=== PATIENT | female | born 1965 | race Two or more races ===

== ENCOUNTER 2022-12-13 18:39 | Emergency (ER) | payer MEDICAID, OTHER ==
[~2022-12-13] VITALS: Ht 144.8 cm; Wt 52.5 kg
[2022-12-13] MEDS ORDERED: ASPirin 81 mg TAB PO ONE (18:45)
[2022-12-13 19:10] LABS: Basophils # (auto) 0 10 ^3/uL (0-0.2); Basophils % (auto) 0.4 % (0.0-2.0); Eosinophils # (auto) 0.2 10 ^3/uL (0-0.8); Eosinophils % (auto) 2.4 % (0.0-7.0); Hematocrit 41.7 % (36.0-46.0); Hemoglobin 14.5 g/dL (12.2-16.2); Lymphocytes # (auto) 2.1 10 ^3/uL (0.4-5.4); Lymphocytes % (auto) 30.8 % (10.0-50.0); Mean Corpuscular Hemoglobin 28.7 pg (28.0-32.0); Mean Corpuscular Hgb Conc. 34.8 g/dL (32.0-36.0); Mean Corpuscular Volume 82.3 fL (80.0-100.0); Monocytes # (auto) 0.5 10 ^3/uL (0-1.3); Neutrophils % (auto) 59.4 % (37.0-80.0); Nucleated Red Blood Cells % 0.1 %; Red Blood Cells 5.06 10^6/uL (4.0-5.20); Red Cell Distribution Width 13.8 % (11.8-14.3); White Blood Cell 6.7 10^3/uL (4.4-10.8)
[2022-12-13 19:24] LABS: Albumin 3.6 g/dL (3.4-5.0); BUN/Creatinine Ratio 25.7; Calcium 9.1 mg/dL (8.5-10.1); Potassium 4.1 mmol/L (3.5-5.1)
[2022-12-13 19:27] LABS: Bilirubin, Total 0.8 mg/dL (0.2-1.0)
[2022-12-13] MEDS ORDERED: IBUP600T27 PO (21:42)
[2022-12-13 21:47] VITALS: BP 177/78
== END 2022-12-13 21:57 | disposition home or self-care (01) ==
LOC: ER 18:39
DX: R07.89 Other chest pain (principal); M94.0 Chondrocostal junction syndrome [Tietze]; Z20.822 Contact with and (suspected) exposure to COVID-19
CPT/HCPCS: 36415; 71045; 80053; 84484; 85025; 87426; 93005

== ENCOUNTER 2023-01-18 15:44 | Emergency (ER) | payer MEDICAID ==
[~2023-01-18] VITALS: Ht 152.4 cm; Wt 55.6 kg
[~2023-01-18 15:44] MED LIST: IBUP600T27 PO
[2023-01-18 16:59] LABS: Basophils # (auto) 0 10 ^3/uL (0-0.2); Basophils % (auto) 0.8 % (0.0-2.0); Eosinophils # (auto) 0.2 10 ^3/uL (0-0.8); Hematocrit 40.7 % (36.0-46.0); Mean Corpuscular Hemoglobin 28.5 pg (28.0-32.0); Mean Corpuscular Hgb Conc. 34.3 g/dL (32.0-36.0); Mean Corpuscular Volume 83.1 fL (80.0-100.0); Monocytes # (auto) 0.5 10 ^3/uL (0-1.3); Neutrophils # (auto) 3.5 10 ^3/uL (1.6-8.6); Neutrophils % (auto) 56.2 % (37.0-80.0); Red Cell Distribution Width 13.5 % (11.8-14.3); White Blood Cell 6.2 10^3/uL (4.4-10.8)
[2023-01-18 17:08] LABS: Urine Bacteria NONE SEEN /hpf (None Seen); Urine Blood Negative /uL (Negative); Urine Specific Gravity 1.024 (1.001-1.035); Urine WBC 2 /hpf (0 - 5)
[2023-01-18 17:14] LABS: Albumin 3.6 g/dL (3.4-5.0); BUN/Creatinine Ratio 29.4 (10.0-20.0); Potassium 4.1 mmol/L (3.5-5.1)
[2023-01-18 17:17] LABS: Bilirubin, Total 1.6 mg/dL (0.2-1.0); Total Protein 7.1 g/dL (6.4-8.2)
[2023-01-18 20:14] VITALS: BP 158/67
== END 2023-01-18 20:20 | disposition home or self-care (01) ==
LOC: ER 15:44
DX: E11.65 Type 2 diabetes mellitus with hyperglycemia (principal); I10 Essential (primary) hypertension; I25.2 Old myocardial infarction; R51.9 Headache, unspecified
CPT/HCPCS: 36415; 70450; 80053; 81001; 82962; 85025

== ENCOUNTER 2024-05-14 20:43 | Inpatient (IN) | payer MEDICAID ==
[~2024-05-14] VITALS: Ht 152.4 cm; Wt 54.9 kg
[~2024-05-14 20:43] MED LIST changes: +IBUP-1454 PO; -IBUP600T27 PO
[2024-05-14 21:11] LABS: Basophils # (auto) 0.1 10 ^3/uL (0-0.2); Basophils % (auto) 1.1 % (0.0-2.0); Eosinophils # (auto) 0.4 10 ^3/uL (0-0.8); Eosinophils % (auto) 5.1 % (0.0-7.0); Hematocrit 39.1 % (36.0-46.0); Hemoglobin 13.5 g/dL (12.2-16.2); Lymphocytes # (auto) 2.7 10 ^3/uL (0.4-5.4); Lymphocytes % (auto) 35.4 % (10.0-50.0); Mean Corpuscular Hemoglobin 29.4 pg (28.0-32.0); Mean Corpuscular Hgb Conc. 34.6 g/dL (32.0-36.0); Monocytes # (auto) 0.7 10 ^3/uL (0-1.3); Neutrophils # (auto) 3.6 10 ^3/uL (1.6-8.6); Neutrophils % (auto) 48.4 % (37.0-80.0); Nucleated Red Blood Cells % 0.1 %; White Blood Cell 7.5 10^3/uL (4.4-10.8)
[2024-05-14 21:26] LABS: Alanine Aminotransferase 28 U/L (7-40); Alkaline Phosphatase 134 U/L (46-116); Anion Gap 8 (5-15); Aspartate Aminotransferase 17 U/L (13-40); BUN/Creatinine Ratio 25.6 (10.0-20.0); Blood Urea Nitrogen 23 mg/dL (9-23); Calcium 10.2 mg/dL (8.7-10.4); Carbon Dioxide 26 mmol/L (20-30); Chloride 103 mmol/L (98-107); Glucose 171 mg/dL (74-106); Potassium 4.1 mmol/L (3.5-5.1); Sodium 137 mmol/L (136-145)
[2024-05-14 21:27] LABS: Albumin 4.3 g/dL (3.2-4.8); Bilirubin, Total 1.2 mg/dL (0.2-1.0); Total Protein 6.9 g/dL (5.7-8.2)
[2024-05-14 21:34] LABS: Urine Bacteria None Seen /hpf (None Seen)
[2024-05-14 21:56] LABS: Urine Blood TRACE /uL (Negative); Urine Clarity Turbid (Clear); Urine Color Colorless (Yellow); Urine Protein, UAD TRACE (Negative); Urine Specific Gravity 1.015 (1.001-1.035); Urine Urobilinogen Normal (Negative); Urine WBC 318 /hpf (0 - 5); Urine WBC Clumps PRESENT /hpf (None Seen)
[2024-05-14] MEDS ORDERED: ONDANSETRON HCL 4 MG/2 ML VIAL IV PRN (22:30)
[2024-05-14] MEDS ORDERED: HYDROcodone-ACET 5/325MG TAB PO PRN (22:30)
[2024-05-14] MEDS ORDERED: DOCUSATE SOD 100 MG CAP PO PRN (22:30)
[2024-05-14] MEDS ORDERED: MORPHINE SULFATE INJ 2 MG/ml SYRG IV PRN (22:30)
[2024-05-14] MEDS ORDERED: NITROGLYCERIN 0.4 MG SL TAB SL PRN (22:30)
[2024-05-14] MEDS: ASPirin-EC 81 mg tab PO ONE (23:05)
[2024-05-14] MEDS: ASPirin 81 mg TAB PO ONE (23:37)
[2024-05-14] MEDS: LACTATED RINGER'S 1,000 ML IV ONE (23:51)
[2024-05-14] MEDS: cefTRIAXone 1GM/50ML D5W 50 ML IV SCH (23:52)
[2024-05-15] VITALS (9 sets, daily range): BP systolic 112–187; BP diastolic 70–81; PULSE 59–77; RESP 14–20; TEMP 97.8–98.7; O2SAT 95–100
[2024-05-15] MEDS ORDERED: GABA300T4 PO (00:56)
[2024-05-15] MEDS ORDERED: PROP80CA40 PO (00:56)
[2024-05-15] MEDS ORDERED: INSLANTI SC (00:56)
[2024-05-15] MEDS ORDERED: SIMV10TA20 PO (00:56)
[2024-05-15] MEDS ORDERED: LISI10TA34 PO (00:56)
[2024-05-15] MEDS ORDERED: INSU100I49 SC (00:56)
[2024-05-15] MEDS ORDERED: DEXTROSE (50%) 50ML SYRG IV PRN (04:00)
[2024-05-15] MEDS: InsuLIN REG 1unit/0.01ml Soln (100units/ml) SC SCH (04:36)
[2024-05-15] MEDS: ACCU-CHEK COMFORT CURVE STRIP VI SCH (04:42)
[2024-05-15] MEDS: SODIUM CHLOR 0.9% PF (SALINE LOCK) 10ML VIAL/SYR IV SCH (06:45)
[2024-05-15] MEDS: ENOXAPARIN SOD 40 MG/0.4 ML SYRINGE SC SCH (10:10)
[2024-05-15] MEDS: FAMOTIDINE 20 MG TAB PO SCH (10:10)
[2024-05-15] MEDS: NIFEdipine ER 30 MG TAB PO SCH (12:27)
[2024-05-15] MEDS: ACETAMINOPHEN 325 MG TAB PO PRN (20:59)
[2024-05-16] VITALS (8 sets, daily range): BP systolic 113–128; BP diastolic 64–81; PULSE 71–86; RESP 17–19; TEMP 36.8; O2SAT 98–100
[2024-05-16] MEDS ORDERED: NIFE1TAB31 PO (14:07)
[2024-05-16] MEDS ORDERED: LEVO500T91 PO (14:08)
== END 2024-05-16 20:20 | disposition home or self-care (01) | DRG 199 ==
LOC: ER 20:43 → TELE 22:21 → TELE-CENTR 23:34
PROVIDERS: ADMIT Internal Medicine; ATTEND Internal Medicine
DX: I16.0 Hypertensive urgency (principal); E11.9 Type 2 diabetes mellitus without complications; I10 Essential (primary) hypertension; N30.00 Acute cystitis without hematuria; Z79.1 Long term (current) use of non-steroidal anti-inflammatories (NSAID); Z79.899 Other long term (current) drug therapy; Z83.3 Family history of diabetes mellitus; Z82.49 Family history of ischemic heart disease and other diseases of the circulatory system
CPT/HCPCS: 36415; 71045; 76705; 80053; 81001; 82962; 83605; 84484; 85025; 85379; 87086; 87088; 87186; 93005; 93306; G0378; J1815

== ENCOUNTER 2025-09-23 21:00 | Emergency (ER) | payer MEDICAID ==
[~2025-09-23] VITALS: Ht 149.9 cm; Wt 58.2 kg
[~2025-09-23 21:00] MED LIST changes: +GABA300T4 PO; +INSLANTI SC; +INSU100I49 SC; +LEVO500T91 PO; +LISI10TA34 PO; +NIFE1TAB31 PO; +PROP80CA40 PO; +SIMV10TA20 PO
[2025-09-23 21:02] VITALS: BP 151/86; PULSE 83; RESP 20; TEMP 97.7; O2SAT 97
[2025-09-23] MEDS ORDERED: MYC15TP TOP (22:23)
--- NOTE | 2025-09-23 22:23 | ED.PDOC ---
History of Present Illness(SKN HPI Comments PT CAME TO THE ER WITH CC OF LEFT INNER THIGH RASH THAT IS APPROX 3 IN X 1 IN, PT REPORT FLUID FILLED BLISTERS WITH ASSOCIATED ITCHYNESS AND BURNING. PT IS A&OX4, AMBULATORY, RR EVEN AND REGULAR NO DISTRESS NOTED, PT DENIES ALL OTHER SYMPTOMS Chief Complaint: Rash Time Seen by MD: 21:10 Primary Care Provider: MARRY History of Present Illness: Nurses Notes, Medications, Allergies Allergies: Coded Allergies: NO KNOWN ALLERGIES (Unverified , 12/13/22) Home Meds Active Scripts Lidocaine Hcl (Lidocaine) 3 % Cre, 3 % EX TID PRN for 7 Days, #15 GRAMS Prov:JAYE KC 09/23/25 Valacyclovir Hcl (Valtrex) 1 Gm Tab, 1 TAB PO TID for 7 Days, #21 TAB Prov:JAYE KC 09/23/25 Levofloxacin Hemihydrate (LEVAQUIN 500 MG) 500 Mg Tab, 1 TAB PO DAILY, #7 TAB Prov:BONIFACIO JOYA MD 05/16/24 Nifedipine (Nifedipine Er) 30 Mg Tab, 30 MG PO BID, #60 TAB 5 Refills Prov:BONIFACIO JOYA MD 05/16/24 Ibuprofen (Ibuprofen) 600 Mg Tab, 1 TAB PO TID, #30 TAB Prov:HARMAN STRICKLAND PAC 12/13/22 Reported Medications Propranolol Hcl (Inderal La) 80 Mg Cap, 10 MG PO BID, CAP 05/15/24 Gabapentin (Once-Daily) (Gabapentin) 300 Mg Tab, 300 MG PO DAILY, TAB 05/15/24 Insulin Glargine (Lantus) 100 Unit/Ml Inj, 10 UNIT SC TID, INJ 05/15/24 Insulin Aspart (Insulin Aspart) 100 Unit/Ml Inj, 100 UNIT SC, INJ 05/15/24 Simvastatin (Simvastatin) 10 Mg Tab, 10 MG PO DAILY, TAB 05/15/24 Lisinopril (Lisinopril) 10 Mg Tab, 10 MG PO DAILY, TAB 05/15/24 Discontinued Scripts Nystatin-Triamcinolone (Mycolog) 1 Applic Ap, 1 APPLIC TOP BID for 10 Days, #15 GRAMS 1 Refill Prov:JAYE KC 09/23/25 Information Source: Patient Mode of Arrival: Ambulatory Past Medical History PAST MEDICAL HISTORY: DM, HTN, NM Surgical History: Denies all surgeries RELISH BLENDER History: No Pertinent RELISH BLENDER History Family History Family History: Reviewed,noncontributory to illness, No family hx of Cancer, No family hx of DM, No family hx of Heart dolly, No family hx of HTN, No family hx ofKidney dolly, No family hx of Liver dolly, No family hx of Lung dolly, No family hx of Stroke Social History Smoker: Non-Smoker Alcohol: Denies ETOH Use Drugs: Denies Drug Use Lives In: Home All Other Systems: Reviewed and Negative (SEE HPI) Physical Exam General Appearance: No Apparent Distress, Normal HEENT: Pharynx Normal Neck: Full Range of Motion, Non-Tender Respiratory: Lungs Clear, No Respiratory Distress, Normal Breath Sounds Cardiovascular: No Murmur, Normal Peripheral Pulses, Regular Rate/Rhythm Breast Exam: Deferred Gastrointestinal: Non Tender, Soft Genitalia: Deferred Pelvic: Deferred Rectal: Deferred Extremities: Normal capillary refill, Normal range of motion, No pedal edema Musculoskeletal : Apperance: Normal Neurologic: Alert, No Motor Deficits, Normal Affect, Normal Mood, No Sensory Deficits Cerebellar Function: Normal Reflexes: NOT DONE Skin: Dry, Normal Color, Rash (Herpetic rash to left groin no noted open lesions no noted streaking or drainage), Warm Lymphatic: No Adenopathy Was a procedure done? Was a procedure done?: No Differential Diagnosis (INTG) Differential Diagnosis: Cellulitis, Puncture Wound Differential Diagnosis: Abscess, Atopic dermatitis, Candidiasis, Cellulitis, Contact Dermatitis, Impetigo, Molluscum contagiosum, Scabies, Tinea, Urticaria, Varicella, Viral exanthema X-Ray, Labs, Meds, VS Vital Signs Date Time Temp Pulse Resp B/P (MAP) Pulse Ox O2 Delivery O2 Flow Rate FiO2 09/23/25 21:02 97.7 83 20 151/86 97 97.7 X-Ray, Labs, Meds, VS Comment Likely shingles. Script trial of Valtrex and lidocaine for the pain. Advised to follow up with her PCP in 2-3 days if no improvement in symptoms. ER return precautions given patient indicates understanding and agrees with discharge plan of care. Time of 1ST Reevaluation: 21:10 Reevaluation 1ST: Unchanged Time of 2ND Reevaluation: 22:20 Reevaluation 2ND: Improved Patient Education/Counseling: Diagnosis, Treatment, Need For Follow Up Family Education/Counseling: No Family Present SEPSIS Sepsis Screen Date sepsis recognized/suspect: Sep 23, 2025 Time Sepsis recognized/suspect: 2106 Recent Procedure: No On Antibiotic Therapy: No Respiratory Rate >20: No Heart Rate >90: No Temp<36 C (96.8 F) or >38.3 C: No SBP <90 or MAP <65 mmHG: No New Acute Mental Status Change: No Is the patient on CPAP, BIPAP,: No Vital Signs Date Time Temp Pulse Resp B/P (MAP) Pulse Ox O2 Delivery O2 Flow Rate FiO2 09/23/25 21:02 97.7 83 20 151/86 97 97.7 Departure 1 Departure Time of Disposition: 22:22 Impression: Primary Impression: Shingles Qualified Codes: B02.9 - Zoster without complications Disposition: 01 HOME / SELF CARE / HOMELESS Condition: Stable e-Prescriptions Lidocaine Hcl (Lidocaine) 3 % Cre 3 % EX TID PRN for 7 Days, #15 GRAMS Prov: JAYE KC 09/23/25 Valacyclovir Hcl (Valtrex) 1 Gm Tab 1 TAB PO TID for 7 Days, #21 TAB Prov: JAYE KC 09/23/25 Discharged With: Self Critical Care Note Critical Care Time?: No Stability Stability form required: JAYE Handley Sep 23, 2025 22:23
[2025-09-23] MEDS ORDERED: LIDO3CRE16 EX (22:28)
[2025-09-23] MEDS ORDERED: VALA1TAB PO (22:28)
== END 2025-09-23 23:29 | disposition home or self-care (01) ==
LOC: ER 21:00
DX: B02.9 Zoster without complications (principal); I10 Essential (primary) hypertension; E11.9 Type 2 diabetes mellitus without complications; Z79.899 Other long term (current) drug therapy; Z79.624 Long term (current) use of inhibitors of nucleotide synthesis; Z79.4 Long term (current) use of insulin; Z79.1 Long term (current) use of non-steroidal anti-inflammatories (NSAID)